=== PATIENT | male | born 1940 | race Caucasian/White ===

== ENCOUNTER 2016-03-28 19:21 | Emergency (ER) | payer OTHER ==
[~2016-03-28] VITALS: Ht 172.7 cm; Wt 81.7 kg
--- NOTE | ~2016-03-28 | EKG ---
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1940 Requested By: Juan Newman Order Number: [id number] MD: Alex Beckman Measurements Intervals [place] Rate: 62 P: -18 ME: 161 QRS: 58 QRSD: 83 T: 53 QT: 430 QTc: 437 Interpretive Statements Sinus rhythm Baseline wander in lead(s) V3 Compared to ECG 01/30/2016 15:40:47 Ventricular premature complex(es) no longer present Electronically Signed On 03-30-2016 8:40:23 CHIPS SCREEN TENDER by Alex Beckman [email or web address] <ELECTRONICALLY SIGNED> By: Alex Beckman MD, [facility] 03/30/16 0840 20 20 Alex Beckman MD, [facility] /EPI
[~2016-03-28 19:21] MED LIST: ASPIRIN EC81 M1 PO; BENAZEPRIL HCL20 MG PO; CHEWABLE-VITE1 EAC1 PO; CO Q-10100 MG PO; COLACE100 MG PO; FLEXERIL PO; FLOMAX PO; FOLBIC RF TABL1 EACH PO; LIPITOR 20 MG T20 M1 PO; LIPITOR40 MG PO; LOTENSIN PO; MEGA MULTI FOR1 EAC1 PO; METOPROLOL SUCC25 M1 PO; MUCINEX TA600 MG/TA2 PO; NAPROSYN250 MG PO; NITROSTAT0.4 MG SL; NORCO 5-325 TA1 EACH PO; OMEPRAZOLE40 MG PO; PHILLIPS' COLO1 EACH PO; PLAVIX 75 MG TA75 MG PO; PROSCAR 5MG TABL5 MG PO; PROTONIX40 M2 PO; RAPAFLO8 MG PO; TRAMADOL 50 MG50 MG PO; TUSSIONEX PENN473 ML PO; ULTRAM 50MG TAB50 MG; VALIUM5 MG PO; VENTOLIN17 GM INH; VITAMIN D3400 UNIT PO; VYTORIN PO; XANAX 0.25 MG0.25 MG PO; ZPAK PO; ZYRTEC10 M2 PO; [UNRECOGNIZED DRUG - OTHER] PO
[2016-03-28] MEDS ORDERED: CARVEDILOL6.25 MG PO (19:26)
[2016-03-28] MEDS ORDERED: ATIVAN0.5 M1 PO (20:40)
[2016-03-28] MEDS ORDERED: CLONIDINE0.1 PO (20:40)
[2016-03-28] MEDS ORDERED: ANTIVERT25 MG PO (20:40)
== END 2016-03-28 21:13 | disposition home or self-care (01) ==
LOC: ER 19:21
DX: I10 Essential (primary) hypertension (principal); F41.9 Anxiety disorder, unspecified; R42 Dizziness and giddiness; E78.00 Pure hypercholesterolemia, unspecified; Z86.73 Personal history of transient ischemic attack (TIA), and cerebral infarction without residual deficits; Z88.5 Allergy status to narcotic agent; Z88.8 Allergy status to other drugs, medicaments and biological substances; Z87.891 Personal history of nicotine dependence

== ENCOUNTER → 2016-07-22 | Outpatient (CLI) | payer OTHER ==
[~2016-07-22] MED LIST changes: +ANTIVERT25 MG PO; +ATIVAN0.5 M1 PO; +CARVEDILOL6.25 MG PO; +CLONIDINE0.1 PO
== END ==
LOC: NUC 07-01 12:54
DX: I25.10 Atherosclerotic heart disease of native coronary artery without angina pectoris (principal)

== ENCOUNTER 2016-10-11 12:38 | Emergency (ER) | payer OTHER ==
[~2016-10-11] VITALS: Ht 172.7 cm; Wt 81.7 kg
--- NOTE | ~2016-10-11 | EKG ---
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
[2016-10-11 13:16] LABS: PLATELET COUNT 103 thou/uL (150-400); RBC 1.84 mil/uL (4.50-6.00); RDW 12.8 % (10.5-14.5); WBC 3.4 thou/uL (4.0-11.0)
[2016-10-11 13:18] LABS: MCHC 33.3 g/dL (28.0-37.0); MCV 93.2 fL (80.0-100.0)
[2016-10-11 13:20] LABS: MANUAL DIFF YES
[2016-10-11 13:23] LABS: HEMATOCRIT 17.2 % (42.0-52.0); HEMOGLOBIN 5.7 gm/dL (14.0-18.0)
[2016-10-11 13:34] LABS: BUN 13 mg/dL (7-18); CHLORIDE 127 mmol/L (98-107); CREATININE 0.4 mg/dL (0.7-1.3); GLUCOSE 53 mg/dL (74-106); NT-PRO BRAIN NAT PEPTIDE 28 pg/mL (<300); SODIUM 149 mmol/L (136-145); TROPONIN-I < 0.04 ng/mL (<0.04-0.07)
[2016-10-11 13:35] LABS: ANION GAP 12 mmol/L (7-16)
[2016-10-11 13:41] LABS: CALCIUM < 5.0 mg/dL (8.5-10.1); CO2 10 mmol/L (21-32); POTASSIUM 1.3 mmol/L (3.5-5.1)
[2016-10-11 13:53] LABS: ABSOLUTE NEUTROPHILS 1.9 thou/uL (1.4-8.2); TOTAL CELL COUNT 100
[2016-10-11 14:10] LABS: CREATININE 1.9 mg/dL (0.7-1.3); POTASSIUM 4.2 mmol/L (3.5-5.1)
[2016-10-11 14:11] LABS: CALCIUM 8.4 mg/dL (8.5-10.1)
[2016-10-11 14:39] LABS: CALCIUM 8.9 mg/dL (8.5-10.1); CREATININE 1.8 mg/dL (0.7-1.3); POTASSIUM 4.6 mmol/L (3.5-5.1)
[2016-10-11 15:35] LABS: ABSOLUTE NEUTROPHILS 4.6 thou/uL (1.4-8.2); BASOPHILS 0.6 % (0.0-2.0); EOSINOPHILS 1.4 % (0.0-3.0); LYMPHOCYTES 29.6 % (24.0-44.0); MCH 30.6 pg (26.0-34.0); MCHC 33.4 g/dL (28.0-37.0); MCV 91.4 fL (80.0-100.0); MONOCYTES 5.3 % (1.0-8.0); POLYS 63.1 % (36.0-66.0); RBC 4.38 mil/uL (4.50-6.00); RDW 12.7 % (10.5-14.5); WBC 7.3 thou/uL (4.0-11.0)
[2016-10-11 15:40] LABS: HEMOGLOBIN 13.4 gm/dL (14.0-18.0); PLATELET COUNT 215 thou/uL (150-400)
[2016-10-11 15:41] LABS: MANUAL DIFF NO
== END 2016-10-11 17:04 | disposition home or self-care (01) ==
LOC: ER 12:38
PROVIDERS: Nurse Practitioner
DX: M54.2 Cervicalgia (principal); I10 Essential (primary) hypertension; E78.00 Pure hypercholesterolemia, unspecified; Z86.73 Personal history of transient ischemic attack (TIA), and cerebral infarction without residual deficits; Z88.5 Allergy status to narcotic agent; Z88.8 Allergy status to other drugs, medicaments and biological substances; Z87.891 Personal history of nicotine dependence

== ENCOUNTER → 2017-05-16 | Outpatient (CLI) | payer OTHER ==
[~2017-05-16] MED LIST changes: +PREDNISONE 10 M10 MG PO; +ZOFRAN ODT4 MG PO
== END ==
LOC: MRI 08:10
DX: M43.8X6 Other specified deforming dorsopathies, lumbar region (principal); M51.27 Other intervertebral disc displacement, lumbosacral region; M46.87 Other specified inflammatory spondylopathies, lumbosacral region; I25.10 Atherosclerotic heart disease of native coronary artery without angina pectoris

== ENCOUNTER 2017-12-16 09:41 | Emergency (ER) | payer OTHER ==
[~2017-12-16] VITALS: Ht 172.7 cm; Wt 82.1 kg
[~2017-12-16 09:41] MED LIST changes: -PREDNISONE 10 M10 MG PO
[2017-12-16] MEDS ORDERED: VALIUM5 MG PO (10:35)
[2017-12-16] MEDS ORDERED: PREDNISONE 10 M10 MG PO (10:35)
== END 2017-12-16 11:32 | disposition home or self-care (01) ==
LOC: ER 09:41
DX: S39.012A Strain of muscle, fascia and tendon of lower back, initial encounter (principal); I10 Essential (primary) hypertension; E78.00 Pure hypercholesterolemia, unspecified; Z88.5 Allergy status to narcotic agent; Z88.8 Allergy status to other drugs, medicaments and biological substances; Z87.891 Personal history of nicotine dependence; Z86.73 Personal history of transient ischemic attack (TIA), and cerebral infarction without residual deficits; X50.0XXA Overexertion from strenuous movement or load, initial encounter; Y92.89 Other specified places as the place of occurrence of the external cause; Y93.89 Activity, other specified; Y99.8 Other external cause status

== ENCOUNTER → 2017-12-27 | Outpatient (CLI) | payer OTHER ==
[~2017-12-27] MED LIST changes: +PREDNISONE 10 M10 MG PO
== END ==
LOC: MRI 06:29
DX: S32.019A Unspecified fracture of first lumbar vertebra, initial encounter for closed fracture (principal); X58.XXXA Exposure to other specified factors, initial encounter; Y93.89 Activity, other specified; Y92.89 Other specified places as the place of occurrence of the external cause; Y99.8 Other external cause status; M51.36 Other intervertebral disc degeneration, lumbar region; E78.00 Pure hypercholesterolemia, unspecified; I10 Essential (primary) hypertension; Z87.891 Personal history of nicotine dependence; Z88.8 Allergy status to other drugs, medicaments and biological substances

== ENCOUNTER → 2018-01-17 | Outpatient (CLI) | payer OTHER | LOC: MRI 11:58 | DX: Z47.89 Encounter for other orthopedic aftercare (principal); M47.896 Other spondylosis, lumbar region; M54.5 Low back pain; Z98.890 Other specified postprocedural states ==

== ENCOUNTER → 2018-01-24 | Outpatient (CLI) | payer OTHER | LOC: NUC 12:33 | DX: S32.000D Wedge compression fracture of unspecified lumbar vertebra, subsequent encounter for fracture with routine healing (principal); M85.832 Other specified disorders of bone density and structure, left forearm; M85.851 Other specified disorders of bone density and structure, right thigh; M85.852 Other specified disorders of bone density and structure, left thigh; X58.XXXD Exposure to other specified factors, subsequent encounter ==

== ENCOUNTER → 2018-05-15 | Outpatient (CLI) | payer OTHER | LOC: RAD 13:06 | DX: R05 Cough (principal); R06.02 Shortness of breath ==

== ENCOUNTER 2018-06-12 08:12 | Outpatient (CLI) | payer OTHER ==
[~2018-06-12] VITALS: Ht 172.7 cm; Wt 81.2 kg
[2018-06-12 09:40] VITALS: BP 124/43
[2018-06-12] MEDS ORDERED: BENICAR HCT 401 EACH PO (10:01)
[2018-06-12] MEDS ORDERED: RAPAFLO8 MG PO (10:02)
[2018-06-12] MEDS ORDERED: ZETIA10 MG PO (10:03)
[2018-06-12] MEDS ORDERED: B-121000 MC2 PO (10:04)
--- NOTE | 2018-06-12 17:09 | EKG ---
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 : 1940 Requested By: Jed Marino Order Number: [id number] MD: Alex Beckman Measurements Intervals [place] Rate: 52 P: -9 ID: 155 QRS: 69 QRSD: 92 T: 61 QT: 452 QTc: 421 Interpretive Statements Sinus bradycardia Otherwise no significant abnormality Compared to ECG 12/13/2017 18:06:25 No significant changes Electronically Signed On 06-12-2018 17:08:59 CDT by Alex Beckman [email or web address] ��������������������������������������������� <ELECTRONICALLY SIGNED> ���������������������������������������� By: Alex Beckman MD, [facility] ��������������������������������������������� 06/12/18 1708 D: [id number] Alex Beckman MD, FACC /EPI
[2018-06-12 17:25] VITALS: BP 124/48
--- NOTE | 2018-06-12 18:24 | NUR ---
PT ARRIVED FROM CV HOLDING TO FINISH RECOVERY...VSS..ABLE TO VOID..ON BEDREST UNTIL 1914..
[2018-06-12 18:30] VITALS: BP 118/57
[2018-06-12 19:34] VITALS: BP 114/60
--- NOTE | 2018-06-12 20:12 | NUR ---
Shortly after assuming care of pt, went to pt room to assess pt. Pt a/o x 4. RA. VSS. Left groin site soft, no hematoma, dressing C/D/I. Bedrest complete at 1940. Pt assisted to bathroom, steady on feet. Discharge instructions given. Assisted pt with dressing up. Pt left unit in wheelchair accompanied by this nurse and family member at about 1949. Waited with pt in wheelchair in [facility] area until pt's ride arrived. This nurse returned to floor with wheelchair at 2008. Pt signed discharge paperwork per instruction of outgoing day-shift nurse. Signed paperwork placed in pt chart. IV and tele box removed prior to pt departure of this unit. Tele box given to front desk monitor.
--- NOTE | 2018-06-13 18:35 | CATHLAB ---
[facility] [address] [place] [address] INVASIVE PROCEDURE REPORT Name: RIANA MANN Room #: DEP Marc#: [id number] ������������� Admission: 06/12/18 ������������� Attend Phys: Terry Mckeon, Discharge: ��� 06/13/18 ������������� ��� Date of : 42 Date of Service: 06/13/18 1834 �� Report #: [id number] �������� ��������������������������������������������[id number] THIS REPORT FOR: //name// APPROVED REPORT Study performed: 06/12/2018 13:33:34 Patient Details Patient Status: Out-Patient Room #: The patient is a 78 year-old male Event Personnel Jed Marino Towel Inspector, Ntio Regalado RN, Vandana Salinas RT(R)() Amelia Yanez David Monitor Procedures Performed Left Heart Cath w/or w/o Coronaries [id number] [facility] Indication Chest pain Procedure Narrative The Right Groin^ was infiltrated with subcutaneous anesthesia. A PINNACLE 6FR Sheath #[id number] sheath was inserted into the RFA^. Coronary angiography was performed using coronary diagnostic catheters. The right coronary system was accessed and visualized with a JR4 catheter. The left coronary system was accessed and visualized with a JL4 catheter. The left ventricle was accessed and visualized with a PIGTAIL catheter. Left ventriculogram was performed in , 30 degree projection. Closure device was deployed with a 6 Fr 6F Fish closure. There was no hematoma. Intraoperative Conscious Sedation Sedation start time: 13.46 Case end Time: 14.02 Fentanyl 50 mcg Versed 1.5 mg Fluoro Time: 1.47 minutes Dose: DAP 2141 cGycm2 249 mGy Contrast Type and Amount: Visipaque 80 ml Hemodynamics The aortic pressure is 116/42 mmHg with a mean of 73 mmHg. The left ventricular pressure is 172/9 mmHg with a mean of mmHg. The left ventricular end diastolic pressure is 24 mmHg. [facility] [address] [place] [address] INVASIVE PROCEDURE REPORT Name: RIANA MANN Room #: JOSSIE Tran#: [id number] ������������� Admission: 06/12/18 ������������� Attend Phys: Terry Mckeon, Discharge: ��� 06/13/18 ������������� ��� Date of : 42 Date of Service: 06/13/18 1834 �� Report #: [id number] �������� ��������������������������������������������[id number] PCI Technique Lesion 2 Percutaneous Coronary Intervention was performed on the Unspecified. 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 No indication for coronary intervention. ��������������������������������������������� <ELECTRONICALLY SIGNED> ���������������������������������������� By: Jed Marino MD, [facility] ��������������������������������������������� 06/13/181833 33 33 Jed Marino MD, [facility] /INF
== END 2018-06-13 01:37 | disposition home or self-care (01) ==
LOC: SPEC 08:12 → CATH 08:12 → 3W 17:20 → CATH 06-13 01:37
DX: I25.10 Atherosclerotic heart disease of native coronary artery without angina pectoris (principal); I70.238 Atherosclerosis of native arteries of right leg with ulceration of other part of lower leg; I70.1 Atherosclerosis of renal artery; I10 Essential (primary) hypertension; E78.00 Pure hypercholesterolemia, unspecified; K21.9 Gastro-esophageal reflux disease without esophagitis; N40.0 Benign prostatic hyperplasia without lower urinary tract symptoms; F41.9 Anxiety disorder, unspecified; Z98.890 Other specified postprocedural states; Z86.73 Personal history of transient ischemic attack (TIA), and cerebral infarction without residual deficits; Z87.891 Personal history of nicotine dependence; Z79.899 Other long term (current) drug therapy; Z79.82 Long term (current) use of aspirin
CPT/HCPCS: 10779

== ENCOUNTER → 2018-06-19 | Outpatient (CLI) | payer OTHER ==
[~2018-06-19] VITALS: Ht 172.7 cm; Wt 81.2 kg
[~2018-06-19] MED LIST changes: +B-121000 MC2 PO; +BENICAR HCT 401 EACH PO; +ZETIA10 MG PO
[2018-06-19 10:02] VITALS: BP 134/56
== END | disposition home or self-care (01) ==
LOC: SPEC 08:29
DX: I70.211 Atherosclerosis of native arteries of extremities with intermittent claudication, right leg (principal); I25.10 Atherosclerotic heart disease of native coronary artery without angina pectoris; I10 Essential (primary) hypertension; E78.00 Pure hypercholesterolemia, unspecified; Z86.73 Personal history of transient ischemic attack (TIA), and cerebral infarction without residual deficits; I65.23 Occlusion and stenosis of bilateral carotid arteries; N40.0 Benign prostatic hyperplasia without lower urinary tract symptoms; K21.9 Gastro-esophageal reflux disease without esophagitis; E78.5 Hyperlipidemia, unspecified; Z87.891 Personal history of nicotine dependence; I74.3 Embolism and thrombosis of arteries of the lower extremities

== ENCOUNTER 2019-03-24 17:11 | Emergency (ER) | payer OTHER ==
[~2019-03-24] VITALS: Ht 175.3 cm; Wt 95.3 kg
[2019-03-24 17:34] LABS: ABSOLUTE NEUTROPHILS 3.8 thou/uL (1.4-8.2); BASOPHILS 1.1 % (0.0-2.0); EOSINOPHILS 5.1 % (0.0-3.0); HEMATOCRIT 35.3 % (42.0-52.0); HEMOGLOBIN 11.7 gm/dL (14.0-18.0); LYMPHOCYTES 33.6 % (24.0-44.0); MCH 31.1 pg (26.0-34.0); MCV 94.2 fL (80.0-100.0); MONOCYTES 7.3 % (1.0-8.0); PLATELET COUNT 214 thou/uL (150-400); POLYS 52.9 % (36.0-66.0); RBC 3.75 mil/uL (4.50-6.00); RDW 12.8 % (10.5-14.5); WBC 7.2 thou/uL (4.0-11.0)
[2019-03-24 17:43] LABS: ANION GAP 10 mmol/L (7-16); BUN 18 mg/dL (7-18); CALCIUM 9.4 mg/dL (8.5-10.1); CHLORIDE 103 mmol/L (98-107); CO2 25 mmol/L (21-32); CREATININE 1.7 mg/dL (0.7-1.3); GLUCOSE 186 mg/dL (74-106); POTASSIUM 4.1 mmol/L (3.5-5.1); SODIUM 138 mmol/L (136-145)
[2019-03-24 17:55] LABS: ALBUMIN 3.5 g/dL (3.4-5.0); DIRECT BILIRUBIN < 0.1 mg/dL (<0.1-0.2); LIPASE 61 U/L (73-393); SGOT 52 U/L (15-37); SGPT 64 U/L (30-65); TOTAL BILIRUBIN 0.2 mg/dL (<0.1-1.0); TOTAL PROTEIN 7.5 g/dL (6.4-8.2); TROPONIN-I <0.06 ng/mL (<0.06)
[2019-03-24] MEDS ORDERED: ZOFRAN ODT4 MG PO (18:48)
[2019-03-24 19:47] VITALS: BP 140/57
--- NOTE | 2019-03-25 16:20 | EKG ---
[facility] [address] [facility] [facility] [email or web address] [address] ELECTROCARDIOGRAM REPORT Name: RIANA MANN [facility]: [facility] [id number] Admission: 03/24/19 Attend Phys: Discharge: 03/24/19 Date of : 42 Report #: [id number] THIS REPORT FOR: //name// [facility] ED Test Date: 2019-03-24 Test Time: 17:12:23 Pat Name: RIANA MANN Department: Room: Gender: Able Bodied Tankerman: [facility] : 1940 Requested By: Abimbola Rodrigez Order Number: [id number] MD: Jun Sandra Measurements Intervals [place] Rate: 96 P: VT: QRS: 84 QRSD: 74 T: 63 QT: 380 QTc: 481 Interpretive Statements Sinus bradycardia Ventricular bigeminy Baseline wander in lead(s) V4 Compared to ECG 06/12/2018 09:28:01 Ventricular premature complex(es) now present Electronically Signed On 03-25-2019 16:19:49 SETTLEMENT CLERK by Jun Sandra [email or web address] <ELECTRONICALLY SIGNED> By: Jun Sandra MD 03/25/19 1619 11 11 Jun Sandra MD /EPI
== END 2019-03-24 19:58 | disposition home or self-care (01) ==
LOC: ER 17:11
PROVIDERS: Emergency Medicine
DX: R11.2 Nausea with vomiting, unspecified (principal); R10.13 Epigastric pain; I10 Essential (primary) hypertension; I73.9 Peripheral vascular disease, unspecified; E78.00 Pure hypercholesterolemia, unspecified; E78.5 Hyperlipidemia, unspecified; K21.9 Gastro-esophageal reflux disease without esophagitis; Z86.73 Personal history of transient ischemic attack (TIA), and cerebral infarction without residual deficits; Z87.891 Personal history of nicotine dependence; Z88.6 Allergy status to analgesic agent; Z88.8 Allergy status to other drugs, medicaments and biological substances

== ENCOUNTER → 2019-06-01 | Outpatient (CLI) | payer OTHER | LOC: SJCVCIMAG 10:03 | DX: I65.23 Occlusion and stenosis of bilateral carotid arteries (principal); I73.9 Peripheral vascular disease, unspecified ==

== ENCOUNTER → 2019-08-14 | Outpatient (CLI) | payer OTHER | LOC: SJCVC 14:24 | DX: R00.1 Bradycardia, unspecified (principal); I73.9 Peripheral vascular disease, unspecified; I25.10 Atherosclerotic heart disease of native coronary artery without angina pectoris; I12.9 Hypertensive chronic kidney disease with stage 1 through stage 4 chronic kidney disease, or unspecified chronic kidney disease; N18.3 Chronic kidney disease, stage 3 (moderate); E78.00 Pure hypercholesterolemia, unspecified; Z87.891 Personal history of nicotine dependence; Z79.899 Other long term (current) drug therapy ==

== ENCOUNTER → 2019-09-24 | Outpatient (CLI) | payer OTHER | LOC: ULTRA 10:27 | PROVIDERS: ATTEND Hospitalist | DX: N17.9 Acute kidney failure, unspecified (principal); I10 Essential (primary) hypertension ==

== ENCOUNTER → 2020-02-05 | Outpatient (CLI) | payer OTHER | LOC: SJCVCIMAG 06:40 | PROVIDERS: ATTEND Internal Medicine Cardiovascular Disease | DX: I70.201 Unspecified atherosclerosis of native arteries of extremities, right leg (principal); R94.31 Abnormal electrocardiogram [ECG] [EKG]; E78.00 Pure hypercholesterolemia, unspecified; I25.10 Atherosclerotic heart disease of native coronary artery without angina pectoris; G45.9 Transient cerebral ischemic attack, unspecified; I77.9 Disorder of arteries and arterioles, unspecified; I12.9 Hypertensive chronic kidney disease with stage 1 through stage 4 chronic kidney disease, or unspecified chronic kidney disease; N18.30 Chronic kidney disease, stage 3 unspecified; Z95.828 Presence of other vascular implants and grafts; Z87.81 Personal history of (healed) traumatic fracture; Z79.899 Other long term (current) drug therapy; Z87.891 Personal history of nicotine dependence ==

== ENCOUNTER 2020-07-02 15:15 | Emergency (ER) | payer OTHER ==
[~2020-07-02] VITALS: Ht 172.7 cm; Wt 79.4 kg
[2020-07-02 16:11] LABS: ABSOLUTE NEUTROPHILS 5.2 thou/uL (1.4-8.2); BASOPHILS 0.5 % (0.0-2.0); EOSINOPHILS 1.3 % (0.0-3.0); HEMATOCRIT 33.4 % (42.0-52.0); LYMPHOCYTES 23.3 % (24.0-44.0); MCH 31.4 pg (26.0-34.0); MONOCYTES 6.3 % (1.0-8.0); PLATELET COUNT 221 thou/uL (150-400); POLYS 68.6 % (36.0-66.0); RBC 3.52 mil/uL (4.50-6.00); RDW 12.6 % (10.5-14.5); WBC 7.5 thou/uL (4.0-11.0)
[2020-07-02 16:21] LABS: ANION GAP 8 mmol/L (7-16); BUN 25 mg/dL (7-18); CALCIUM 8.3 mg/dL (8.5-10.1); CHLORIDE 105 mmol/L (98-107); CO2 23 mmol/L (21-32); CREATININE 2.1 mg/dL (0.7-1.3); GLUCOSE 212 mg/dL (74-106); POTASSIUM 4.2 mmol/L (3.5-5.1); SODIUM 136 mmol/L (136-145)
[2020-07-02 16:30] LABS: ALBUMIN 3.2 g/dL (3.4-5.0); SGOT 31 U/L (15-37); SGPT 38 U/L (30-65); TOTAL BILIRUBIN 0.3 mg/dL (0.2-1.0); TOTAL PROTEIN 6.6 g/dL (6.4-8.2); TROPONIN-I <0.06 ng/mL (<0.06)
--- NOTE | 2020-07-02 16:36 | EKG ---
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 07/02/20 1636 1550 1550 Mitch Chadwick MD, FACC /EPI
[2020-07-02 17:06] LABS: URINE BILIRUBIN NEGATIVE (Negative); URINE BLOOD NEGATIVE (Negative); URINE CLARITY CLEAR; URINE COLOR YELLOW; URINE GLUCOSE-RANDOM* NEGATIVE (Negative); URINE KETONES NEGATIVE (Negative); URINE NITRITE-REFLEX NEGATIVE (Negative); URINE PROTEIN (DIPSTICK) NEGATIVE (Negative); URINE SPECIFIC GRAVITY 1.025 (1.005-1.035); URINE UROBILINOGEN 0.2 E.U./dl (0.2-1.0)
[2020-07-02 17:08] LABS: URINE LEUKOCYTES-REFLEX 1+ (Negative)
[2020-07-02 17:15] LABS: SQUAMOUS None Seen /LPF (0-3)
[2020-07-02 17:16] LABS: BACTERIA-REFLEX None Seen /HPF (None Seen); CASTS None Seen /LPF (None Seen); CRYSTALS None Seen /LPF (None Seen); URINE RBC None Seen /HPF (0-2); URINE WBC-REFLEX 0-5 Rare /HPF (0-5)
[2020-07-02] MEDS ORDERED: ZOFRAN ODT4 MG PO (17:22)
[2020-07-02 18:17] VITALS: BP 128/41
== END 2020-07-02 18:18 | disposition home or self-care (01) ==
LOC: ER 15:15
PROVIDERS: Emergency Medicine
DX: J06.9 Acute upper respiratory infection, unspecified (principal); R11.0 Nausea; I10 Essential (primary) hypertension; E78.5 Hyperlipidemia, unspecified; Z86.73 Personal history of transient ischemic attack (TIA), and cerebral infarction without residual deficits; Z79.899 Other long term (current) drug therapy; Z79.82 Long term (current) use of aspirin; Z87.891 Personal history of nicotine dependence; Z88.5 Allergy status to narcotic agent; Z88.8 Allergy status to other drugs, medicaments and biological substances

== ENCOUNTER → 2020-11-19 | Outpatient (CLI) | payer OTHER | LOC: SJCVCIMAG 09:58 | PROVIDERS: ATTEND Internal Medicine Cardiovascular Disease | DX: R94.31 Abnormal electrocardiogram [ECG] [EKG] (principal); I35.8 Other nonrheumatic aortic valve disorders; I48.91 Unspecified atrial fibrillation; I70.201 Unspecified atherosclerosis of native arteries of extremities, right leg; I65.23 Occlusion and stenosis of bilateral carotid arteries; I25.10 Atherosclerotic heart disease of native coronary artery without angina pectoris; I77.9 Disorder of arteries and arterioles, unspecified; E78.00 Pure hypercholesterolemia, unspecified; I10 Essential (primary) hypertension; R00.1 Bradycardia, unspecified; Z86.73 Personal history of transient ischemic attack (TIA), and cerebral infarction without residual deficits; Z79.899 Other long term (current) drug therapy; Z87.891 Personal history of nicotine dependence; Z88.5 Allergy status to narcotic agent; Z88.8 Allergy status to other drugs, medicaments and biological substances ==